=== PATIENT | female | born 2000 | race Caucasian/White ===

== ENCOUNTER 2022-04-09 10:09 | Emergency (ER) | payer OTHER, SELFPAY ==
[2022-04-09 10:12] VITALS: BP 116/80; PULSE 102; RESP 16; TEMP 36.1; O2SAT 99; BMI 27.4
--- NOTE | 2022-04-09 10:49 | ED_ITS ---
HPI - Skin/Abscess/Foreign Bdy General Chief complaint: Skin/Abscess/Foreign Body Stated complaint: blister on buttocks Time Seen by Provider: 04/09/22 10:28 Source: patient Mode of arrival: ambulatory Limitations: no limitations History of Present Illness HPI narrative: 22-year-old female healthy here with swelling and pain to the top of her buttocks since yesterday with no associated fevers or chills Related Data Previous Rx's Medication Instructions Recorded doxycycline monohydrate 100 mg 100 mg PO BID #20 cap 04/09/22 capsule Allergies Allergy/AdvReac Type Severity Reaction Status Date / Time Penicillins Allergy Unknown Verified 04/09/22 10:53 Review of Systems Review of Systems: Yes all other systems are reviewed and are negative Constitutional: Constitutional: Reports no additional constitutional complaints, Denies body ache(s), Denies chills, Denies fever(s), Denies headache(s) and Denies weakness Eyes: Eyes: Reports no additional eye complaints and Denies change in vision ENT: Reports system reviewed and no additional complaints, except as documented, Denies dizziness, Denies headache(s), Denies nasal congestion, Denies nasal discharge and Denies neck pain Cardiovascular: Cardiovascular: Reports no additional cardiovascular complaints, Denies chest pain, Denies leg edema and Denies dyspnea Respiratory: Respiratory: Reports no additional respiratory complaints, Denies cough and Denies dyspnea Gastrointestinal: Gastrointestinal: Reports no additional gastrointestinal complaints, Denies abdominal pain, Denies diarrhea, Denies nausea and Denies vomiting Genitourinary: Genitourinary: Reports no additional female genitourinary complaints and Denies urinary incontinence Musculoskeletal: Musculoskeletal: Reports no additional musculoskeletal complaints, Denies back pain, Denies arthralgias, Denies joint swelling, Denies neck pain, Denies numbness and Denies tingling Integumentary/Breasts: Skin/Breast: Reports system reviewed and no additional complaints, except as docu, Reports furuncle, Reports erythema and Denies rash Neurologic: Reports system reviewed and no additional complaints, except as documented, Denies Abnormal speech present, Denies dizziness, Denies headache(s), Denies numbness, Denies tingling and Denies weakness [facility] Past Medical History Attestation statement: The following information was validated with the patient. Source: old records reviewed and nursing notes reviewed Social History Social History Advance Directives: No Advance Directives Information Provided: No Physical Exam Vital Signs: Vital Signs: Last Vital Signs Temp 97 F 04/09/22 10:12 Pulse 102 H 04/09/22 10:12 Resp 16 04/09/22 10:12 BP 116/80 04/09/22 10:12 Pulse Ox 99 04/09/22 10:12 BMI result Body Mass Index 27.4 Const: General: cooperative, healthy appearing, comfortable and no acute distress Orientation/consciousness: patient oriented x3 Limitations: no limitations HEENT: Head: Yes normal to inspection Ears: hearing grossly normal bilaterally General nose exam: Normal external nose present Face and sinus: Yes normal facial exam Mouth: Normal oral and palatal mucosa present Throat: Yes posterior oropharynx normal Eyes: General: appearance normal, both eyes and all related structures Pupils: Equal, round and reactive pupils present Neck: Neck: Yes normal visual inspection Chest: Chest palpation & inspection: normal inspection of the chest Resp: Effort & Inspection: normal respiratory effort Auscultation: clear to auscultation bilaterally Cardio: Rate: regular rate Rhythm: regular rhythm Peripheral pulses: Peripheral pulses 2+ throughout GI: Inspection: Yes normal to inspection Palpation (GI): Soft to palpation and nontender Auscultation: normal bowel sounds Back/Spine/Pelvis: Thoracic/Lumbar Spine: thoracic and lumbar spine normal to inspection Back/spine/pelvis image: 1. Swelling redness and tenderness Skin: General skin exam: no rashes or lesions noted Neuro: General: patient oriented x3, no focal motor deficits and normal sensation to monofilament Cranial nerves: Yes Equal, round and reactive pupils present Cognition (Neuro): normal cognition Speech: No Abnormal speech present Gait exam (Neuro): Normal gait present Motor exam (neuro): 5/5 motor strength present throughout Extrem: General: Yes normal to inspection Course Course Course Narrative: Pilonidal abscess. Will need I&D. Reevaluation(s) Reevaluation #1: See procedure note. Patient recommended to return for packing removal in 48 hours. Reviewed worrisome signs and symptoms of when to return to the emergency department. Comfortable discharge home. MDM - Skin/Abscess/Foreign Bdy Medical Records Attestation: I reviewed the patient's medical records. Lab Data Attestation: I reviewed the patient's lab results. Procedures Abscess I/D Site: other (Pilonidal) Local Anesthetic: lidocaine 2% Amount of anesthesia used (mL): 5 Technique: incised with blade Amount of fluid expressed (mL): 10 Sent for culture/gram staining?: No Irrigation: No Packing used?: iodoform Discharge Plan Discharge Clinical Impression: Pilonidal abscess Patient Disposition: Home, Self-Care Instructions: Pilonidal Cyst (ED) Additional Instructions: Return in 48 hrs for packing removal Leave the dressing in place until then Prescriptions: New doxycycline monohydrate 100 mg capsule 100 mg PO BID Qty: 20 0RF Referrals: Physician,None [Primary Care Provider] - Interventions: ED Discharge Assessment Last Done: 04/09/22 11:16 Discharge Date/Time: 04/09/22 11:17
[2022-04-09] MEDS: Lidocaine HCl 2 % MPF 5 ML VIAL SUBCUT (10:52)
== END 2022-04-09 11:17 | disposition home or self-care (01) ==
PROVIDERS: Emergency Provider Emergency Medicine
DX: L05.01 Pilonidal cyst with abscess (principal)
CPT/HCPCS: 10060; 99283; 99284

== ENCOUNTER 2022-04-10 21:42 | Emergency (ER) | payer OTHER, SELFPAY ==
[2022-04-10 22:35] VITALS: BP 128/72; PULSE 110; RESP 20; TEMP 36.1; O2SAT 98; BMI 27.4
[2022-04-10 23:27] VITALS: BP 135/80; PULSE 95; RESP 16; TEMP 36.8; O2SAT 99
--- NOTE | 2022-04-10 23:39 | ED.WOUNDLAC ---
HPI - Wound/Laceration General Chief Complaint: Wound/Laceration Stated Complaint: Recheck, stitches removed Time Seen by Provider: 04/10/22 23:11 Source: patient Mode of arrival: ambulatory Limitations: no limitations History of Present Illness HPI narrative: 22-year-old female presents for wound evaluation. Onset (ago): day(s) (3) Location: other (Coccyx) Place: other Patient tetanus UTD: Yes Context: other Associated symptoms: pain Related Data Previous Rx's Medication Instructions Recorded doxycycline monohydrate 100 mg 100 mg PO BID #20 cap 04/09/22 capsule Allergies Allergy/AdvReac Type Severity Reaction Status Date / Time Penicillins Allergy Unknown Verified 04/10/22 22:39 Review of Systems Review of Systems: Constitutional: No Fever, No Chills ENT/Mouth: No Ear Pain, No Hoarseness, No sore throat Eyes: No Eye Pain, No Swelling, No Redness, No Foreign Body Cardiovascular: No Chest Pain, No SOB Respiratory: No Cough, No Dyspnea Gastrointestinal: No Nausea, No Vomiting, No Diarrhea, No abdominal Pain Genitourinary: No Dysuria, No Hematuria Musculoskeletal: positive coccyx pain, No Myalgias, No Joint Swelling Skin: Positive I&D packing to pilonidal cyst, No Skin lacerations, No rash Neuro: No Weakness, No Numbness, No Paresthesias, No Loss of Consciousness, No Dizziness, No Headache Psych: No Anxiety/Panic, No Depression Heme/Lymph: no easy bruising, no Lymphadenopathy Endocrine: No Polyuria, No Polydipsia Yes all other systems are reviewed and are negative [facility] Past Medical History Attestation statement: The following information was validated with the patient. Source: old records reviewed Social History Social History Advance Directives: No Advance Directives Information Provided: No Physical Exam Vital Signs: Vital Signs: Last Vital Signs Temp 98.2 F 04/10/22 23:27 Pulse 95 04/10/22 23:27 Resp 16 04/10/22 23:27 BP 135/80 04/10/22 23:27 Pulse Ox 99 04/10/22 23:27 BMI result Body Mass Index 27.4 Appearance: Alert. Oriented X3. No acute distress. Eyes: Pupils equal, round and reactive to light. ENT: Pharynx normal. Neck: Normal inspection. Neck supple. CVS: Normal heart rate and rhythm. Pulses normal. Respiratory: No respiratory distress. Breath sounds normal. Abdomen: Soft and nontender. Skin: I&D incision to pilonidal cyst no indication of infection. Extremities: No lower extremity edema. Full range of motion. Gait well-balanced well coordinated. Neuro: No motor deficit. No sensory deficit. Cranial nerves 2-12 intact. Course Course Course Narrative: 22-year-old female presents for pilonidal cyst I&D packing removal. Patient does not report any fevers or chills, states to have some tenderness to the site. Packing removed, approximately 10 mL of drainage from the site, nonodorous serosanguineous. No indication of infection. Incision site is well approximated. Patient will continue to take her doxycycline as prescribed. Tylenol and Motrin as needed for pain. Patient does understand the symptoms persist or worsen that she must return for further evaluation. Considering that this is a recurrent pilonidal cyst, I will refer to General surgery for consultation. Patient verbalized understanding of and agrees to plan of care to discharge home. Verbalized understanding of signs and symptoms indicating need for emergent intervention MDM - Wound/Laceration Differential Diagnosis Differential diagnosis: Likely abscess Medical Records Attestation: I reviewed the patient's medical records. Discharge Plan Discharge Clinical Impression: Pilonidal cyst Patient Disposition: Home, Self-Care Instructions: Pilonidal Cyst (ED) Additional Instructions: We removed the packing to the incised pilonidal cyst. The wound is healing properly. Continue to take doxycycline as prescribed. You can expect the wound to drain for the next few days. If symptoms worsen or you develop fevers and chills please return for evaluation. This is a recurrent pilonidal cyst. You may consider following up with surgery. I have referred you to Dr. Lau. Please call and request an appointment. Thank you for choosing this emergency department for evaluation. Please follow-up with primary care physician as needed. Return to the emergency department for any new, concerning, or worsening symptoms. Prescriptions: No Action doxycycline monohydrate 100 mg capsule 100 mg PO BID Qty: 20 0RF Referrals: Yifan Lau MD [Physician] - (Recurrent pilonidal cyst) Interventions: ED Discharge Assessment Last Done: 04/10/22 23:59 Discharge Date/Time: 04/11/22 00:01
== END 2022-04-11 00:01 | disposition home or self-care (01) ==
PROVIDERS: Emergency Provider Internal Medicine
DX: L05.91 Pilonidal cyst without abscess (principal); Z98.890 Other specified postprocedural states; Z88.0 Allergy status to penicillin
CPT/HCPCS: 99282; 99283

== ENCOUNTER → 2022-04-15 10:32 | Outpatient (BNVA) | payer OTHER, SELFPAY | PROVIDERS: Visit Provider Surgery | DX: L05.91 Pilonidal cyst without abscess (principal) | CPT/HCPCS: 99202 ==

== ENCOUNTER 2022-04-17 08:42 | Day surgery (SDC) | payer OTHER, SELFPAY ==
[2022-04-17] VITALS (8 sets, daily range): BP systolic 94–136; BP diastolic 43–74; PULSE 65–94; RESP 16–17; TEMP 36.2–36.8; O2SAT 98–99; BMI 29.2
--- NOTE | 2022-04-17 08:51 | HE.PHANOTE ---
Verified penicillin allergy, pt had unknown reaction when she was a child but not clinically significant.
[2022-04-17] MEDS: Lactated Ringers 1,000 ML 50 ML IVCONT (09:23)
[2022-04-17 10:26] LABS: HCG Quantitative < 2 mIU/mL
--- NOTE | 2022-04-17 11:11 | MHC.SHP ---
Pre-Procedural Eval Section A Date of Service: 04/17/22 The patient is an INPATIENT: No Changes since office visit: No Cold of Flu in the past 2 weeks, No New Medical Problems, No Changes in Medication and No Patient answered all questions The History & Physical has been completed within 30 days and I have reviewed it.: Yes Section B Chief Complaint: Pilonidal cyst without abscess Allergies: Allergies Allergy/AdvReac Type Severity Reaction Status Date / Time Penicillins Allergy Unknown Verified 04/17/22 09:17 Plan I have reviewed the history and physical and performed a pertinent physical examination on my patient. No changes have occurred unless specified.
--- NOTE | 2022-04-17 11:22 | HO.ANESPROP2 ---
HPI - Anesthesia Eval Consult details Narrative: 22 F for pilondial cyst removal PMFSH Active Problems Active Problems: All Active Problems (Updated 04/15/22 @ 10:58 by Yifan Lau MD) Sacrococcygeal pilonidal cyst (Acute) Migraine (Acute) Polycystic ovarian syndrome (Acute) Past Medical History Medical History (Updated 04/15/22 @ 10:58 by Yifan Lau MD) Migraine Polycystic ovarian syndrome Sacrococcygeal pilonidal cyst Functional capacity: independent ambulation Family History Family history of problems with anesthesia: No Surgical History Surgical History History of wisdom tooth extraction History of Problems with Anesthesia: No Social History Social History Patient Tobacco Use Status: Never used Tobacco Use of substances other than those prescribed or required for medical reasons: No Are you DNR?: No Advance Directives: No Advance Directives Information Provided: Yes Meds Allergies Allergy/AdvReac Type Severity Reaction Status Date / Time Penicillins Allergy Unknown Verified 04/17/22 09:17 Active Medications: Current Medications Acetaminophen (Acetaminophen 325 Mg Tablet) 650 mg PO ONCE PRN PRN Reason: Pain, Mild (Pain Scale 1-3) Fentanyl (Fentanyl Citrate/Pf 100 Mcg/2 Ml Vial) 25 mcg IVPUSH Q5M PRN; Protocol PRN Reason: Pain, Moderate (Pain Scale 4-6 Hydromorphone HCl (Hydromorphone Hcl 0.5 Mg/0.5 Ml Syringe) 0.25 mg IVPUSH Q5M PRN; Protocol PRN Reason: Pain, Severe (Pain Scale 7-10) Lactated Ringer's (Lr) 1,000 mls @ 50 mls/hr IVCONT .Q20H BIGG Last Admin: 04/17/22 09:23 Dose: 50 mls/hr Documented by: Promethazine HCl 6.25 mg/ (Sodium Chloride) 50.25 mls @ 201 mls/hr IV ONCE PRN PRN Reason: Nausea and Vomiting Oxycodone HCl (Oxycodone Hcl Immed Release 5 Mg Tablet) 5 mg PO ONCE PRN PRN Reason: Pain, Severe (Pain Scale 7-10) Home Medications Medication Instructions Recorded Confirmed Last Taken Type naproxen 500 mg tablet 500 mg PO BID 04/15/22 04/10/22 History sumatriptan succinate 25 mg tablet 25 mg PO Q2-4H PRN 04/15/22 Unknown History Exam Exam Date and Time: April 17, 2022 1122 Height,Weight and Vital Signs: Height 5 ft 4 in Weight 77.111 kg Last Vital Signs Temp 98.2 F 04/17/22 09:22 Pulse 94 04/17/22 09:22 Resp 16 04/17/22 09:22 BP 136/74 04/17/22 09:22 Pulse Ox 98 04/17/22 09:22 Pertinent Lab Results Pertinent Lab Results: Laboratory Tests 04/17/22 09:56 Beta HCG, Quant < 2 Airway Mallampati Class: III TM Dist: >3cm Neck ROM: Full Loose/Missing/Broken Teeth: Yes (Implants ) Heart: S1 , S2 Lungs: b/l breath sounds Assessment and Plan Assessment Anesthesia Assessment: Anesthesia Plan Discussed and Chart Reviewed Final Anesthetic Review Family History of Problems with Anesthesia: No History of Problems with Anesthesia: No NPO: Yes ASA Class: II Final Preanesthetic Review: Meds/Allgs Chart Reviewed, Consent Obtained/Reviewed and Anes Risks/Benef Reviewed Patient Risk: Intermediate Procedure Risk: Intermediate Anesthetic Plan Anesthetic Plan: GA Disposition: Standard PACU
--- NOTE | 2022-04-17 12:25 | W.PM.OPN ---
Operative Note Operative Note Date of Service: 04/17/22 Narrative: Preop diagnosis: Pilonidal cyst, sacrococcygeal area Postop diagnosis: Pilonidal cyst, sacrococcygeal area Procedure: Excision of pilonidal cyst, sacrococcygeal area Surgeon: Yifan Lau MD The patient is a 22 year old female with an area of induration, and periodic drainage and swelling on the tailbone for over 2 months now. She had undergone an I and D recently in the ED. Examination was consistent with the palatal cyst. She understood the technique of excision under anesthesia. She was aware of the risks, benefits, and alternatives She was brought to the operating room. She was placed in prone position. She was under general anesthesia via endotracheal tube. The sacrococcygeal area was prepped and draped in the usual sterile fashion. A surgical time-out was done. The patient received cefazolin 2 g IV preoperatively. There was note of an induration to the left of midline on the sacrococcygeal area with midline pits in the cleft . I infiltrated the area surrounding this with lidocaine 1%. I made an elliptical incision in the skin surrounding this induration using blade 15. This was carried down with electrocautery through the full-thickness of skin and subcutaneous fat. I excised this entire indurated area making sure that all sinuses and diseased tissue were removed. This involved the deep subcutaneous layer. The excised area was about 6 cm long by about 4 cm wide. I undermined the subcutaneous layer to allow closure without tension and create a flap on both sides. I had to do a lot of cauterization to control oozing areas. Once hemostasis appeared to be adequate, I reapposed the deep subcutaneous layer and multiple Dexon 2-0 Polysorb sutures. The skin was then closed with alternating vertical mattress sutures and simple interrupted sutures using nylon 2-0. Dressings were applied. I had infiltrated the area with Marcaine 0.5% for postop analgesia and the procedure was completed. The patient tolerated the procedure well. There were no complication noted. Initial and final counts of sponges and instruments were correct. Estimated blood loss about 50 cc The patient was extubated without difficulty and transferred to the recovery room with stable vital signs.
== END 2022-04-17 14:07 | disposition home or self-care (01) ==
PROVIDERS: Anesthesiology; Visit Provider Surgery
PROC: (CPT 11771; principal; 2022-04-17 10:20)
DX: L05.91 Pilonidal cyst without abscess (principal); E28.2 Polycystic ovarian syndrome; G43.909 Migraine, unspecified, not intractable, without status migrainosus; Z88.0 Allergy status to penicillin; Z79.1 Long term (current) use of non-steroidal anti-inflammatories (NSAID)
CPT/HCPCS: 11771; 36415; 84702; 88304; J0690; J1100; J2250; J2370; J2405; J3010

== ENCOUNTER → 2022-04-30 09:57 | Outpatient (BNVA) | payer MEDICAID, SELFPAY | PROVIDERS: Visit Provider Surgery | DX: Z48.02 Encounter for removal of sutures (principal) | CPT/HCPCS: 99211 ==